=== PATIENT | female | born 1940 | race Caucasian/White ===

== ENCOUNTER 2020-12-01 10:38 | Emergency (ER) | payer MEDICARE, BC | END 2020-12-01 11:45 | disposition left against medical advice (07) | LOC: JP.ED 10:38 | DX: Z53.21 Procedure and treatment not carried out due to patient leaving prior to being seen by health care provider (principal) ==

== ENCOUNTER 2020-12-01 23:21 | Inpatient (IN) | payer MEDICARE, BC ==
[2020-12-01] MEDS ORDERED: Ondansetron 4 MG Tab.DIS PO ONE (23:45)
--- NOTE | 2020-12-01 23:46 | EDM.PDOC ---
ED HPI GENERAL MEDICAL PROBLEM - General Chief Complaint: General Stated Complaint: COVID POSITIVE Time Seen by Provider: 12/01/20 23:40 Source of Information: Reports: Patient History Limitations: Reports: No Limitations - History of Present Illness INITIAL COMMENTS - FREE TEXT/NARRATIVE: Eli is an 80-year-old female returning to the ED after being seen earlier today by Dr. Ferrera where she was diagnosed with COVID-19. She returns tonight because of continued congestion and still not feeling well. He was going to use set up for monoclonal therapy as an outpatient tomorrow morning.. The patient reports she has had symptoms for the last several days and has had a diminished appetite, congestion, and just generally does not feel well. She denies any significant shortness of breath or cough. She has had several episodes of emesis and ongoing nausea but denies any diarrhea or constipation. She states that she has not eaten anything in the last couple of days. She did not get the COVID-19 vaccine because she did not feel concerned that she was going to get it. She has not been masking in the general public. She denies any fever or chills. She has had no loss of taste or smell. She is very vague with her symptoms. Initial vital signs are normal except for an elevated blood pressure at 211/91. Her SPO2 is 97% on room air. She has a past medical h istory significant for hypothyroidism for which she is on thyroxine. She denies any history of diabetes, hypertension, cancer, immunosuppressive therapy use, or coronary artery disease. bodyaches Pain Score (Numeric/FACES): 7 - Related Data Allergies Allergy/AdvReac Type Severity Reaction Status Date / Time No Known Allergies Allergy Verified 12/01/20 23:44 Home Meds: Home Meds Levothyroxine Sodium [Euthyrox] 100 mcg PO DAILY 12/01/20 [History] Omeprazole 20 mg PO DAILY 12/01/20 [History] ED ROS GENERAL - Review of Systems Review Of Systems: See Below Constitutional: Reports: Malaise, Weakness, Fatigue, Decreased Appetite HEENT: Reports: Hearing Loss (The ears being plugged up), Rhinitis (Congestion) Respiratory: Reports: Shortness of Breath (Mild). Denies: Cough, Sputum Cardiovascular: Reports: Blood Pressure Problem (Blood pressure is elevated today) Endocrine: Reports: Fatigue GI/Abdominal: Reports: Nausea, Vomiting Musculoskeletal: Reports: Muscle Pain Skin: Reports: No Symptoms Neurological: Reports: Headache Psychiatric: Reports: No Symptoms Hematologic/Lymphatic: Reports: No Symptoms Immunologic: Reports: No Symptoms ED EXAM, GENERAL - Physical Exam Exam: See Below Exam Limited By: No Limitations General Appearance: Alert, No Apparent Distress, Anxious Eye Exam: Bilateral Eye: EOMI, PERRL Nose: Nasal Swelling, Clear Rhinorrhea Throat/Mouth: Normal Oropharynx, Normal Voice, No Airway Compromise Head: Atraumatic, Normocephalic Neck: Normal Inspection, Supple, Non-Tender, Full Range of Motion. No: Lymphadenopathy (R), Lymphadenopathy (L) Respiratory/Chest: No Respiratory Distress, Lungs Clear, Normal Breath Sounds. No: Rales, Rhonchi, Wheezing Cardiovascular: Normal Peripheral Pulses, Regular Rate, Rhythm, No Murmur Peripheral Pulses: 2+: Radial (L), Radial (R) GI/Abdominal: Soft, Non-Tender, Abnormal Bowel Sounds (Decreased bowel sounds). No: Guarding, Rebound Back Exam: Normal Inspection Extremities: Normal Inspection, Normal Range of Motion, No Pedal Edema Neurological: Alert, Oriented, Normal Cognition, No Motor/Sensory Deficits Psychiatric: Normal Affect, Anxious Skin Exam: Warm, Dry, Intact, Normal Color. No: Cyanosis Course - Vital Signs Last Recorded V/S: Last Vital Signs Temp 36.3 C 12/01/20 23:41 Pulse 75 12/01/20 23:41 Resp 20 12/01/20 23:41 BP 211/89 H 12/01/20 23:41 Pulse Ox 98 12/01/20 23:41 - Orders/Labs/Meds Orders: Active Orders 24 hr Category Date Time Status Chest 1V Frontal [CR] Stat Exams 12/02/20 00:01 Taken C-REACTIVE PROTEIN [CHEM] Stat Lab 12/01/20 23:44 Ordered COMPREHENSIVE METABOLIC PN,CMP [CHEM] Stat Lab 12/01/20 23:44 Ordered D-DIMER QUANTITATIVE [COAG] Stat Lab 12/01/20 23:44 Ordered FERRITIN [CHEM] Stat Lab 12/01/20 23:44 Ordered LACTATE DEHYDROGENASE,LDH [CHEM] Stat Lab 12/01/20 23:44 Ordered Labs: Laboratory Tests 12/01/20 12/01/20 Range/Units 23:55 23:55 WBC 3.9 L (4.5-11.0) K/uL RBC 4.70 (3.30-5.50) M/uL Hgb 14.5 (12.0-15.0) g/dL Hct 40.5 (36.0-48.0) % MCV 86 (80-98) fL MCH 31 (27-31) pg MCHC 36 (32-36) % Plt Count 137 L (150-400) K/uL Neut % (Auto) 44.1 (36-66) % Lymph % (Auto) 43.7 (24-44) % [place] % (Auto) 11.4 H (2-6) % Eos % (Auto) 0.3 L (2-4) % Baso % (Auto) 0.5 (0-1) % Lactic Acid 0.9 (0.4-2.0) mmol/L Meds: Medications Discontinued Medications Generic Name Dose Route Start Last Admin Trade Name Freq PRN Reason Stop Dose Admin Ondansetron HCl 4 mg 12/01/20 23:45 12/01/20 23:55 Ondansetron 4 Mg Tab.Dis PO 12/01/20 23:46 4 mg ONETIME ONE Administration - Radiology Interpretation Free Text/Narrative:: I reviewed the patient's 1 view chest x-ray showing mild bilateral bibasilar scattered fluffy infiltrates likely from the development of Covid pneumonia. - Re-Assessments/Exams Free Text/Narrative Re-Assessment/Exam: 12/02/20 00:36 I reviewed the patient's 1 view chest x-ray showing mild bilateral bibasilar scattered fluffy infiltrates likely from the development of Covid pneumonia. The patient CBC shows a normal leukocyte count of 3.9, hemoglobin of 14.5, hematocrit of 40.5 and a platelet count of 137,000. The venous lactic acid is only 0.9. The D-dimer is mildly elevated at 642 but still within the normal age-adjusted range of less than 800. Her comprehensive metabolic panel shows a sodium of 115, potassium of 4.1, chloride of 82, carbonate of 24, BUN of 10 with a creatinine of 0.6 and glucose of 125. The ferritin is 632, calcium of 8.1 with an albumin of 3.4 and a corrected calcium of 8.2. I discussed the case with Dr. Pelayo and we both felt that perhaps a liter of IV normal saline may correct her sodium. Therefore, we infused a liter of IV normal saline as well as calcium gluconate 1 g for the hypocalcemia. 12/02/20 02:20 A sodium was checked after the infusion and is now 116. The patient had no mental status change despite the hyponatremia which was likely secondary to free water access and the lack of eating over the last several days. However, this is a significantly low sodium in an elderly female and probably warrants admission. 12/02/20 02:37 I discussed the case with Dr. Pelayo again who will come in to admit the patient for further care. Departure - Departure Time of Disposition: 02:45 Disposition: Admitted As Inpatient 64 Clinical Impression: COVID-19, Hyponatremia, Hypocalcemia Nausea and vomiting Qualifiers: Vomiting type: unspecified Vomiting Intractability: non-intractable Qualified Code(s): R11.2 - Nausea with vomiting, unspecified - Discharge Information Instructions: COVID-19 Frequently Asked Questions, COVID-19: How to Protect Yourself and Others - CDC, COVID-19: What to Do if You Are Sick - [facility] (03/21/2020), Hypocalcemia, Adult, Hyponatremia Forms: ED Department Discharge Sepsis Event Note (ED) - Focused Exam Vital Signs: Vital Signs Temp Pulse Resp BP Pulse Ox 12/01/20 23:41 36.3 C 75 20 211/89 H 98 - Problem List & Annotations (1) COVID-19 SNOMED Code(s): 786189000 Code(s): U07.1 - COVID-19 Status: Acute Priority: Medium Current Visit: Yes (2) Nausea and vomiting SNOMED Code(s): 72708244 Code(s): R11.2 - NAUSEA WITH VOMITING, UNSPECIFIED Status: Acute Priority: Medium Current Visit: Yes Qualifiers: Vomiting type: unspecified Vomiting Intractability: non-intractable Qualified Code(s): R11.2 - Nausea with vomiting, unspecified (3) Hypocalcemia SNOMED Code(s): 7622093 Code(s): E83.51 - HYPOCALCEMIA Status: Acute Priority: High Current Visit: Yes (4) Hyponatremia SNOMED Code(s): 62725662 Code(s): E87.1 - HYPO-OSMOLALITY AND HYPONATREMIA Status: Acute Priority: Medium Current Visit: Yes - Problem List Review Problem List Initiated/Reviewed/Updated: Yes - My Orders Last 24 Hours: My Active Orders 12/01/20 23:44 C-REACTIVE PROTEIN [CHEM] Stat COMPREHENSIVE METABOLIC PN,CMP [CHEM] Stat D-DIMER QUANTITATIVE [COAG] Stat FERRITIN [CHEM] Stat LACTATE DEHYDROGENASE,LDH [CHEM] Stat 12/02/20 00:01 Chest 1V Frontal [CR] Stat - Assessment/Plan Last 24 Hours: My Active Orders 12/01/20 23:44 C-REACTIVE PROTEIN [CHEM] Stat COMPREHENSIVE METABOLIC PN,CMP [CHEM] Stat D-DIMER QUANTITATIVE [COAG] Stat FERRITIN [CHEM] Stat LACTATE DEHYDROGENASE,LDH [CHEM] Stat 12/02/20 00:01 Chest 1V Frontal [CR] Stat
[2020-12-02] MEDS ORDERED: Calcium Gluconate 10% 1 GM/10 ML SDV IVPUSH ONE (01:05)
[2020-12-02] MEDS ORDERED: Sodium Chloride 0.9% 10 ML Syringe FLUSH PRN (01:05)
[2020-12-02] MEDS ORDERED: Sodium Chloride 0.9% 1,000 ML IV SCH (01:15)
--- NOTE | 2020-12-02 03:39 | PCM.HP.2 ---
H&P History of Present Illness - General Date of Service: 12/02/20 Admit Problem/Dx: Admission Diagnosis/Problem Admission Diagnosis/Problem Hyponatremia Source of Information: Patient, Provider History Limitations: Reports: No Limitations - History of Present Illness Initial Comments - Free Text/Narative: CC: I felt pretty crappy HPI: Eli presents to the emergency room with diffuse body aches, mild headache and poor intake. She has been ill since , about 4 days ago. She first noticed a mild headache as well as diffuse myalgias. She had mild nausea. Over the next couple of days her symptoms increased with more intense myalgias. She had several episodes of vomiting along with the nausea. She has had some mild diarrhea. No reports of nasal congestion, sore throat. She has not lost her sense of taste or smell. She has had no appetite and has had very little to eat or drink in the last 3 days. She feels weak and fatigues easily. She does not feel particularly short of breath. She has not been coughing. She is not aware of any fevers and has not had any chills. No obvious sick contacts. She was diagnosed earlier in the day by her primary care physician with COVID-19 infection. Because she felt crummy this evening she came in for evaluation. Work-up in the emergency room revealed a sodium of 115 but otherwise her labs were not too exciting. Kidney function is normal. She received 1 L of IV fluids and her sodium level is up to 116. She will be admitted for further management of her low sodium. 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: Musculoskeletal History: Reports: Arthritis Neurological History: Reports: None Psychiatric History: Reports: None Endocrine/Metabolic History: Reports: Hypothyroidism Hematologic History: Reports: None Immunologic History: Reports: None Oncologic (Cancer) History: Reports: None Dermatologic History: Reports: None - Infectious Disease History Infectious Disease History: Reports: Chicken Pox, Measles, Novel Coronavirus - Past Surgical History HEENT Surgical History: Reports: Cataract Surgery, Tonsillectomy Social & Family History - Family History Cardiac: Denies: CAD - Tobacco Use Tobacco Use Status *Q: Never Tobacco User - Alcohol Use Alcohol Use History: No Alcohol Use in Last Twelve Months: No H&P Review of Systems - Review of Systems: Review Of Systems: See Below Free Text/Narrative: A complete 12 point review of systems was obtained. Pertinent positives and negatives are noted in the history of present illness. All other systems were reviewed and were negative except as noted. Exam - Exam Exam: See Below - Vital Signs Vital Signs: Last Vital Signs Temp 36.3 C 12/01/20 23:41 Pulse 79 12/02/20 02:07 Resp 18 12/02/20 02:07 BP 167/69 H 12/02/20 02:07 Pulse Ox 95 12/02/20 02:07 Weight: 62.8 kg - Exam Quality Assessment: No: Supplemental Oxygen General: Alert, Oriented, Cooperative. No: Mild Distress HEENT: Conjunctiva Clear. No: Mucosa Moist & [place] (dry), Scleral Icterus Neck: Supple, Trachea Midline. No: Lymphadenopathy Lungs: Normal Respiratory Effort, Crackles (few both bases) Cardiovascular: Regular Rate, Regular Rhythm GI/Abdominal Exam: Normal Bowel Sounds, Soft, Non-Tender, No Distention Extremities: No Pedal Edema. No: Increased Warmth Peripheral Pulses: 2+: Dorsalis Pedis (L), Dorsalis Pedis (R) Skin: Warm, Dry Neuro Extensive - Mental Status: Alert, Oriented x3, Nl Response to Commands Neuro Extensive - Motor, Sensory, Reflexes: No: Dysarthria, Abnormal Motor, Tremor Psychiatric: Alert, Normal Affect - Patient Data Lab Results Last 24 hrs: Laboratory Results - last 24 hr 12/01/20 12/01/20 12/01/20 Range/Units 23:55 23:55 23:55 WBC 3.9 L (4.5-11.0) K/uL RBC 4.70 (3.30-5.50) M/uL Hgb 14.5 (12.0-15.0) g/dL Hct 40.5 (36.0-48.0) % MCV 86 (80-98) fL MCH 31 (27-31) pg MCHC 36 (32-36) % Plt Count 137 L (150-400) K/uL Neut % (Auto) 44.1 (36-66) % Lymph % (Auto) 43.7 (24-44) % [place] % (Auto) 11.4 H (2-6) % Eos % (Auto) 0.3 L (2-4) % Baso % (Auto) 0.5 (0-1) % D-Dimer, Quantitative 642.40 H (0.0-500.0) ng/mL Sodium 115 L* (140-148) mmol/L Potassium 4.1 (3.6-5.2) mmol/L Chloride 82 L (100-108) mmol/L Carbon Dioxide 24 (21-32) mmol/L Anion Gap 13.1 (5.0-14.0) mmol/L BUN 10 (7-18) mg/dL Creatinine 0.6 (0.6-1.0) mg/dL Est Cr Clr Drug Dosing 57.17 mL/min Estimated GFR (MDRD) > 60 (>60) Glucose 125 H (74-106) mg/dL Lactic Acid (0.4-2.0) mmol/L Calcium 8.1 L (8.5-10.1) mg/dL Ferritin 632 H (8-388) ng/ml Total Bilirubin 0.4 (0.2-1.0) mg/dL AST 29 (15-37) U/L ALT 30 (12-78) U/L Alkaline Phosphatase 86 (46-116) U/L Lactate Dehydrogenase 202 (82-234) U/L C-Reactive Protein 0.51 H (0.0-0.3) mg/dL Total Protein 6.4 (6.4-8.2) g/dL Albumin 3.4 (3.4-5.0) g/dL Globulin 3.0 (2.3-3.5) g/dL Albumin/Globulin Ratio 1.1 L (1.2-2.2) TSH, Ultra Sensitive (0.358-3.740) uIU/mL 12/01/20 12/02/20 12/02/20 Range/Units 23:55 02:10 02:10 WBC (4.5-11.0) K/uL RBC (3.30-5.50) M/uL Hgb (12.0-15.0) g/dL Hct (36.0-48.0) % MCV (80-98) fL MCH (27-31) pg MCHC (32-36) % Plt Count (150-400) K/uL Neut % (Auto) (36-66) % Lymph % (Auto) (24-44) % [place] % (Auto) (2-6) % Eos % (Auto) (2-4) % Baso % (Auto) (0-1) % D-Dimer, Quantitative (0.0-500.0) ng/mL Sodium 116 L* (140-148) mmol/L Potassium (3.6-5.2) mmol/L Chloride (100-108) mmol/L Carbon Dioxide (21-32) mmol/L Anion Gap (5.0-14.0) mmol/L BUN (7-18) mg/dL Creatinine (0.6-1.0) mg/dL Est Cr Clr Drug Dosing mL/min Estimated GFR (MDRD) (>60) Glucose (74-106) mg/dL Lactic Acid 0.9 (0.4-2.0) mmol/L Calcium (8.5-10.1) mg/dL Ferritin (8-388) ng/ml Total Bilirubin (0.2-1.0) mg/dL AST (15-37) U/L ALT (12-78) U/L Alkaline Phosphatase (46-116) U/L Lactate Dehydrogenase (82-234) U/L C-Reactive Protein (0.0-0.3) mg/dL Total Protein (6.4-8.2) g/dL Albumin (3.4-5.0) g/dL Globulin (2.3-3.5) g/dL Albumin/Globulin Ratio (1.2-2.2) TSH, Ultra Sensitive 1.959 (0.358-3.740) uIU/mL Result Diagrams: 12/01/20 23:55 12/02/20 02:10 Sepsis Event Note - Focused Exam Vital Signs: Vital Signs Temp Pulse Resp BP Pulse Ox 12/02/20 02:07 79 18 167/69 H 95 12/02/20 00:48 72 18 153/73 H 95 12/01/20 23:41 36.3 C 75 20 211/89 H 98 *Q Meaningful Use (ADM) - VTE Risk Assess *Q Each Risk Factor Represents 1 Point: Serious lung disease including pneumonia Total Score 1 Point Risk Factors: 1 Each Risk Factor Represents 2 Points: None Total Score 2 Point Risk Factors: 0 Each Risk Factor Represents 3 Points: Age 75 Years or Greater Total Score 3 Point Risk Factors: 3 Each Risk Factor Represents 5 Points: None Total Score 5 Point Risk Factors: 0 Venous Thromboembolism Risk Factor Score *Q: 4 - Problem List (1) COVID-19 SNOMED Code(s): 472063029 ICD Code: U07.1 - COVID-19 Status: Acute Priority: Medium Current Visit: Yes (2) Hyponatremia SNOMED Code(s): 47605711 ICD Code: E87.1 - HYPO-OSMOLALITY AND HYPONATREMIA Status: Acute Priority: Medium Current Visit: Yes Problem List Initiated/Reviewed/Updated: Yes Orders Last 24hrs: Active Orders 24 hr Category Date Time Status Patient Status Manage Transfer [TRANSFER] Routine ADT 12/02/20 03:31 Ordered Chest 1V Frontal [CR] Stat Exams 12/02/20 00:01 Taken Sodium Chloride 0.9% [Normal Saline] 1,000 ml Med 12/02/20 01:15 Active IV ASDIRECTED Sodium Chloride 0.9% [Saline Flush] Med 12/02/20 01:05 Active 10 ml FLUSH ASDIRECTED PRN Saline Lock Insert [OM.PC] Routine Oth 12/02/20 01:05 Ordered Resuscitation Status Routine Resus Stat 12/02/20 03:32 Ordered Medication Orders Sodium Chloride (Normal Saline) 1,000 mls @ 999 mls/hr IV ASDIRECTED GRETEL Last Admin: 12/02/20 01:28 Dose: 999 mls/hr Documented by: PREILOR Sodium Chloride (Sodium Chloride 0.9% 10 Ml Syringe) 10 ml FLUSH ASDIRECTED PRN PRN Reason: Keep Vein Open Last Admin: 12/02/20 01:28 Dose: 10 ml Documented by: PREILOR Assessment/Plan Comment:: ASSESSMENT AND PLAN - Severe hyponatremia-I am a little suspicious this may be chronic with no impressive symptoms even with the sodium that is quite low. Vitals are stable. Kidney function is stable. She is slightly hypovolemic. She does feel better after a liter of fluids. Her PPI has the potential to cause this though this reaction is unusual. I am hopeful that with a high salt diet she can improve her sodium level. If not she may require hypertonic saline. -High salt diet -Recheck sodium in 4 hours -Consider hypertonic saline if not improving in 4 hours -Check serum osmolality -Urine for urinalysis, urine osmolality and urine sodium -Discontinue PPI COVID-19 infection-manifestations include myalgias, nausea, vomiting and fatigue. She is not currently hypoxic. -Isolation precautions -No treatment indicated at this time other than supportive care Hypothyroidism, acquired-TSH normal. -Continue supplement Maintenance issues - -DVT prophylaxis-Lovenox -GI prophylaxis-H2 annabel -Nutrition-regular diet with extra salt -Barcenas catheter-not indicated CODE STATUS -full code Admission justification -this patient will be admitted for observation to initiate therapy for hyponatremia Disposition -I anticipate discharge home after the hospital stay Primary care physician -Dr. Otilio Pelayo M.D. - Mortality Measure Prognosis:: Good
[2020-12-02] MEDS ORDERED: Ondansetron 4 MG/2 ML SDV IV PRN (03:44)
[2020-12-02] MEDS ORDERED: Ondansetron 4 MG Tab.DIS PO PRN (03:44)
--- NOTE | 2020-12-02 03:53 | PCM.HP.2 ---
H&P History of Present Illness - General Date of Service: 12/02/20 Admit Problem/Dx: Admission Diagnosis/Problem Admission Diagnosis/Problem Hyponatremia bodyaches Pain Score (Numeric/FACES): 7 - Related Data Allergies/Adverse Reactions: Allergies Allergy/AdvReac Type Severity Reaction Status Date / Time No Known Allergies Allergy Verified 12/01/20 23:44 Home Medications: Home Meds Levothyroxine Sodium [Euthyrox] 100 mcg PO DAILY 12/01/20 [History] Omeprazole 20 mg PO DAILY 12/01/20 [History] Past Medical History Cardiovascular History: Reports: None Respiratory History: Reports: None Gastrointestinal History: Reports: GERD Genitourinary History: Reports: None [employer] History: Reports: Musculoskeletal History: Reports: Arthritis Neurological History: Reports: None Psychiatric History: Reports: None Endocrine/Metabolic History: Reports: Hypothyroidism Hematologic History: Reports: None Immunologic History: Reports: None Oncologic (Cancer) History: Reports: None Dermatologic History: Reports: None - Infectious Disease History Infectious Disease History: Reports: Chicken Pox, Measles, Novel Coronavirus - Past Surgical History HEENT Surgical History: Reports: Cataract Surgery, Tonsillectomy Social & Family History - Family History Cardiac: Denies: CAD - Tobacco Use Tobacco Use Status *Q: Never Tobacco User Exam - Vital Signs Vital Signs: Last Vital Signs Temp 36.3 C 12/01/20 23:41 Pulse 79 12/02/20 02:07 Resp 18 12/02/20 02:07 BP 167/69 H 12/02/20 02:07 Pulse Ox 95 12/02/20 02:07 Weight: 62.8 kg - Patient Data Lab Results Last 24 hrs: Laboratory Results - last 24 hr 12/01/20 12/01/20 12/01/20 Range/Units 23:55 23:55 23:55 WBC 3.9 L (4.5-11.0) K/uL RBC 4.70 (3.30-5.50) M/uL Hgb 14.5 (12.0-15.0) g/dL Hct 40.5 (36.0-48.0) % MCV 86 (80-98) fL MCH 31 (27-31) pg MCHC 36 (32-36) % Plt Count 137 L (150-400) K/uL Neut % (Auto) 44.1 (36-66) % Lymph % (Auto) 43.7 (24-44) % Randolph % (Auto) 11.4 H (2-6) % Eos % (Auto) 0.3 L (2-4) % Baso % (Auto) 0.5 (0-1) % D-Dimer, Quantitative 642.40 H (0.0-500.0) ng/mL Sodium 115 L* (140-148) mmol/L Potassium 4.1 (3.6-5.2) mmol/L Chloride 82 L (100-108) mmol/L Carbon Dioxide 24 (21-32) mmol/L Anion Gap 13.1 (5.0-14.0) mmol/L BUN 10 (7-18) mg/dL Creatinine 0.6 (0.6-1.0) mg/dL Est Cr Clr Drug Dosing 57.17 mL/min Estimated GFR (MDRD) > 60 (>60) Glucose 125 H (74-106) mg/dL Lactic Acid (0.4-2.0) mmol/L Calcium 8.1 L (8.5-10.1) mg/dL Ferritin 632 H (8-388) ng/ml Total Bilirubin 0.4 (0.2-1.0) mg/dL AST 29 (15-37) U/L ALT 30 (12-78) U/L Alkaline Phosphatase 86 (46-116) U/L Lactate Dehydrogenase 202 (82-234) U/L C-Reactive Protein 0.51 H (0.0-0.3) mg/dL Total Protein 6.4 (6.4-8.2) g/dL Albumin 3.4 (3.4-5.0) g/dL Globulin 3.0 (2.3-3.5) g/dL Albumin/Globulin Ratio 1.1 L (1.2-2.2) TSH, Ultra Sensitive (0.358-3.740) uIU/mL 12/01/20 12/02/20 12/02/20 Range/Units 23:55 02:10 02:10 WBC (4.5-11.0) K/uL RBC (3.30-5.50) M/uL Hgb (12.0-15.0) g/dL Hct (36.0-48.0) % MCV (80-98) fL MCH (27-31) pg MCHC (32-36) % Plt Count (150-400) K/uL Neut % (Auto) (36-66) % Lymph % (Auto) (24-44) % Randolph % (Auto) (2-6) % Eos % (Auto) (2-4) % Baso % (Auto) (0-1) % D-Dimer, Quantitative (0.0-500.0) ng/mL Sodium 116 L* (140-148) mmol/L Potassium (3.6-5.2) mmol/L Chloride (100-108) mmol/L Carbon Dioxide (21-32) mmol/L Anion Gap (5.0-14.0) mmol/L BUN (7-18) mg/dL Creatinine (0.6-1.0) mg/dL Est Cr Clr Drug Dosing mL/min Estimated GFR (MDRD) (>60) Glucose (74-106) mg/dL Lactic Acid 0.9 (0.4-2.0) mmol/L Calcium (8.5-10.1) mg/dL Ferritin (8-388) ng/ml Total Bilirubin (0.2-1.0) mg/dL AST (15-37) U/L ALT (12-78) U/L Alkaline Phosphatase (46-116) U/L Lactate Dehydrogenase (82-234) U/L C-Reactive Protein (0.0-0.3) mg/dL Total Protein (6.4-8.2) g/dL Albumin (3.4-5.0) g/dL Globulin (2.3-3.5) g/dL Albumin/Globulin Ratio (1.2-2.2) TSH, Ultra Sensitive 1.959 (0.358-3.740) uIU/mL Result Diagrams: 12/01/20 23:55 12/02/20 02:10 Sepsis Event Note - Focused Exam Vital Signs: Vital Signs Temp Pulse Resp BP Pulse Ox 12/02/20 02:07 79 18 167/69 H 95 12/02/20 00:48 72 18 153/73 H 95 12/01/20 23:41 36.3 C 75 20 211/89 H 98 - Problem List (1) COVID-19 SNOMED Code(s): 364349216 ICD Code: U07.1 - COVID-19 Status: Acute Priority: Medium Current Visit: Yes (2) Hyponatremia SNOMED Code(s): 31525291 ICD Code: E87.1 - HYPO-OSMOLALITY AND HYPONATREMIA Status: Acute Priority: Medium Current Visit: Yes Orders Last 24hrs: Active Orders 24 hr Category Date Time Status Patient Status [ADT] Routine ADT 12/02/20 03:44 Active Intake and Output [RC] QSHIFT Care 12/02/20 03:44 Active Notify Provider Vital Signs [RC] ASDIRECTED Care 12/02/20 03:44 Active Oxygen Therapy [RC] PRN Care 12/02/20 03:44 Active Up With Assistance [RC] ASDIRECTED Care 12/02/20 03:44 Active VTE/DVT Education [RC] Per Unit Routine Care 12/02/20 03:44 Active Vital Signs [RC] Q4H Care 12/02/20 03:44 Active Regular Diet [DIET] Diet 12/02/20 Breakfast Active Chest 1V Frontal [CR] Stat Exams 12/02/20 00:01 Taken BASIC METABOLIC PANEL,BMP [CHEM] Routine Lab 12/02/20 08:00 Ordered OSMOLALITY Routine Lab 12/02/20 03:44 Ordered OSMOLALITY, URINE Routine Lab 12/02/20 03:44 Ordered SODIUM,URINE RANDOM [URCHEM] Routine Lab 12/02/20 03:44 Ordered UA W/MICROSCOPIC [URIN] Stat Lab 12/02/20 03:44 Ordered Acetaminophen [TylenoL] Med 12/02/20 03:44 Ordered 650 mg PO Q4H PRN Enoxaparin [Lovenox] Med 12/02/20 09:00 Ordered 40 mg SUBCUT DAILY Famotidine [Pepcid] Med 12/02/20 09:00 Ordered 20 mg PO DAILY LORazepam [Ativan] Med 12/02/20 03:44 Ordered 0.5 mg IVPUSH Q4H PRN Levothyroxine [Synthroid] Med 12/02/20 09:00 Ordered 100 mcg PO DAILY Ondansetron [Zofran ODT] Med 12/02/20 03:44 Ordered 4 mg PO Q6H PRN Ondansetron [Zofran] Med 12/02/20 03:44 Ordered 4 mg IV Q6H PRN Sodium Chloride 0.9% [Saline Flush] Med 12/02/20 01:05 Active 10 ml FLUSH ASDIRECTED PRN Saline Lock Insert [OM.PC] Routine Oth 12/02/20 01:05 Ordered Resuscitation Status Routine Resus Stat 12/02/20 03:32 Ordered Medication Orders Acetaminophen (Acetaminophen 325 Mg Tab) 650 mg PO Q4H PRN PRN Reason: Pain (Mild 1-3)/fever Enoxaparin Sodium (Enoxaparin 40 Mg/0.4 Ml Syringe) 40 mg SUBCUT DAILY GRETEL Famotidine (Famotidine 20 Mg Tab) 20 mg PO DAILY GRETEL Levothyroxine Sodium (Levothyroxine 100 Mcg Tab) 100 mcg PO DAILY GRETEL Lorazepam (Lorazepam 2 Mg/Ml Sdv) 0.5 mg IVPUSH Q4H PRN PRN Reason: Nausea/Vomiting Ondansetron HCl (Ondansetron 4 Mg/2 Ml Sdv) 4 mg IV Q6H PRN PRN Reason: Nausea/Vomiting Ondansetron HCl (Ondansetron 4 Mg Tab.Dis) 4 mg PO Q6H PRN PRN Reason: Nausea able to take PO Sodium Chloride (Sodium Chloride 0.9% 10 Ml Syringe) 10 ml FLUSH ASDIRECTED PRN PRN Reason: Keep Vein Open Last Admin: 12/02/20 01:28 Dose: 10 ml Documented by: GLENN
[2020-12-02] MEDS: Acetaminophen 325 MG Tab PO PRN ×3 (06:43→16:27)
[2020-12-02] MEDS ORDERED: Levothyroxine 100 MCG **PTOM PO SCH (07:30)
[2020-12-02] MEDS: Enoxaparin 40 MG/0.4 ML Syringe SUBCUT SCH (08:25)
[2020-12-02] MEDS: LORazepam 2 MG/ML SDV IVPUSH PRN ×2 (08:39→17:43)
--- NOTE | 2020-12-02 09:16 | CR ---
CHEST: Portable 12/02/2020 at 1228 CLINICAL HISTORY:Covid COMPARISON:None FINDINGS: Heart size and pulmonary vascularity are normal. There are atherosclerotic changes in the aorta.. There is some mild increase in lung markings in both lower lobes. This is a predominantly interstitial pattern. Impression: Mild increase in the lower lobe lung markings bilaterally. This may represent a pneumonitis or bronchiolitis
[2020-12-02] MEDS: Sodium Chloride 0.9% 1,000 ML IV SCH ×2 (09:30→19:24)
[2020-12-02] MEDS: Famotidine 20 MG Tab PO SCH (11:48)
--- NOTE | 2020-12-02 15:18 | PCM.PN ---
- General Info Date of Service: 12/02/20 Subjective Update: Ms. Marroquin is an 80-year-old woman who was admitted early this morning with progressive weakness and cough secondary to COVID-19. She is not hypoxic and currently not requiring supplemental oxygen. She was also found to be significantly hyponatremic with a sodium level of 115. Sodium level has not dropped further but has not shown significant improvement thus far. Functional Status: Reports: Tolerating Diet, Urinating - Review of Systems General: Reports: Weakness, Fatigue. Denies: Fever, Chills Pulmonary: Reports: Shortness of Breath, Cough. Denies: Pleuritic Chest Pain, Sputum, Hemoptysis, Wheezing Cardiovascular: Reports: Dyspnea on Exertion. Denies: Chest Pain, Palpitations, Orthopnea, PND, Edema, Lightheadedness Gastrointestinal: Reports: Decreased Appetite, Nausea. Denies: Abdominal Pain, Diarrhea, Difficulty Swallowing, Vomiting Genitourinary: Reports: No Symptoms - Patient Data Vitals - Most Recent: Last Vital Signs Temp 97.6 F 12/02/20 11:00 Pulse 67 12/02/20 11:00 Resp 16 12/02/20 11:00 BP 156/68 H 12/02/20 11:00 Pulse Ox 95 12/02/20 11:00 Weight - Most Recent: 138 lb I&O - Last 24 Hours: Intake & Output 12/02/20 12/02/20 12/02/20 06:59 14:59 22:59 Intake Total 250 Output Total 100 950 Balance -100 -700 Lab Results Last 24 Hours: Laboratory Results - last 24 hr 12/01/20 12/01/20 12/01/20 Range/Units 23:55 23:55 23:55 WBC 3.9 L (4.5-11.0) K/uL RBC 4.70 (3.30-5.50) M/uL Hgb 14.5 (12.0-15.0) g/dL Hct 40.5 (36.0-48.0) % MCV 86 (80-98) fL MCH 31 (27-31) pg MCHC 36 (32-36) % Plt Count 137 L (150-400) K/uL Neut % (Auto) 44.1 (36-66) % Lymph % (Auto) 43.7 (24-44) % [place] % (Auto) 11.4 H (2-6) % Eos % (Auto) 0.3 L (2-4) % Baso % (Auto) 0.5 (0-1) % D-Dimer, Quantitative 642.40 H (0.0-500.0) ng/mL Sodium 115 L* (140-148) mmol/L Potassium 4.1 (3.6-5.2) mmol/L Chloride 82 L (100-108) mmol/L Carbon Dioxide 24 (21-32) mmol/L Anion Gap 13.1 (5.0-14.0) mmol/L BUN 10 (7-18) mg/dL Creatinine 0.6 (0.6-1.0) mg/dL Est Cr Clr Drug Dosing 57.17 mL/min Estimated GFR (MDRD) > 60 (>60) Glucose 125 H (74-106) mg/dL Lactic Acid (0.4-2.0) mmol/L Calcium 8.1 L (8.5-10.1) mg/dL Ferritin 632 H (8-388) ng/ml Total Bilirubin 0.4 (0.2-1.0) mg/dL AST 29 (15-37) U/L ALT 30 (12-78) U/L Alkaline Phosphatase 86 (46-116) U/L Lactate Dehydrogenase 202 (82-234) U/L C-Reactive Protein 0.51 H (0.0-0.3) mg/dL Total Protein 6.4 (6.4-8.2) g/dL Albumin 3.4 (3.4-5.0) g/dL Globulin 3.0 (2.3-3.5) g/dL Albumin/Globulin Ratio 1.1 L (1.2-2.2) TSH, Ultra Sensitive (0.358-3.740) uIU/mL Urine Color (YELLOW) Urine Appearance (CLEAR) Urine pH (5.0-8.0) Ur Specific [place] (1.008-1.030) Urine Protein (NEGATIVE) mg/dL Urine Glucose (UA) (NEGATIVE) mg/dL Urine Ketones (NEGATIVE) mg/dL Urine Occult Blood (NEGATIVE) Urine Nitrite (NEGATIVE) Urine Bilirubin (NEGATIVE) Urine Urobilinogen (0.2-1.0) EU/dL Ur Leukocyte Esterase (NEGATIVE) Urine RBC (0-5) Urine WBC (0-5) Ur Epithelial Cells Amorphous Sediment Urine Bacteria Urine Mucus Ur Random Sodium (20-110) mmol/L 12/01/20 12/02/20 12/02/20 Range/Units 23:55 02:10 02:10 WBC (4.5-11.0) K/uL RBC (3.30-5.50) M/uL Hgb (12.0-15.0) g/dL Hct (36.0-48.0) % MCV (80-98) fL MCH (27-31) pg MCHC (32-36) % Plt Count (150-400) K/uL Neut % (Auto) (36-66) % Lymph % (Auto) (24-44) % [place] % (Auto) (2-6) % Eos % (Auto) (2-4) % Baso % (Auto) (0-1) % D-Dimer, Quantitative (0.0-500.0) ng/mL Sodium 116 L* (140-148) mmol/L Potassium (3.6-5.2) mmol/L Chloride (100-108) mmol/L Carbon Dioxide (21-32) mmol/L Anion Gap (5.0-14.0) mmol/L BUN (7-18) mg/dL Creatinine (0.6-1.0) mg/dL Est Cr Clr Drug Dosing mL/min Estimated GFR (MDRD) (>60) Glucose (74-106) mg/dL Lactic Acid 0.9 (0.4-2.0) mmol/L Calcium (8.5-10.1) mg/dL Ferritin (8-388) ng/ml Total Bilirubin (0.2-1.0) mg/dL AST (15-37) U/L ALT (12-78) U/L Alkaline Phosphatase (46-116) U/L Lactate Dehydrogenase (82-234) U/L C-Reactive Protein (0.0-0.3) mg/dL Total Protein (6.4-8.2) g/dL Albumin (3.4-5.0) g/dL Globulin (2.3-3.5) g/dL Albumin/Globulin Ratio (1.2-2.2) TSH, Ultra Sensitive 1.959 (0.358-3.740) uIU/mL Urine Color (YELLOW) Urine Appearance (CLEAR) Urine pH (5.0-8.0) Ur Specific [place] (1.008-1.030) Urine Protein (NEGATIVE) mg/dL Urine Glucose (UA) (NEGATIVE) mg/dL Urine Ketones (NEGATIVE) mg/dL Urine Occult Blood (NEGATIVE) Urine Nitrite (NEGATIVE) Urine Bilirubin (NEGATIVE) Urine Urobilinogen (0.2-1.0) EU/dL Ur Leukocyte Esterase (NEGATIVE) Urine RBC (0-5) Urine WBC (0-5) Ur Epithelial Cells Amorphous Sediment Urine Bacteria Urine Mucus Ur Random Sodium (20-110) mmol/L 12/02/20 12/02/20 12/02/20 Range/Units 04:15 04:15 08:00 WBC (4.5-11.0) K/uL RBC (3.30-5.50) M/uL Hgb (12.0-15.0) g/dL Hct (36.0-48.0) % MCV (80-98) fL MCH (27-31) pg MCHC (32-36) % Plt Count (150-400) K/uL Neut % (Auto) (36-66) % Lymph % (Auto) (24-44) % [place] % (Auto) (2-6) % Eos % (Auto) (2-4) % Baso % (Auto) (0-1) % D-Dimer, Quantitative (0.0-500.0) ng/mL Sodium 116 L* (140-148) mmol/L Potassium 4.0 (3.6-5.2) mmol/L Chloride 83 L (100-108) mmol/L Carbon Dioxide 23 (21-32) mmol/L Anion Gap 14.0 (5.0-14.0) mmol/L BUN 8 (7-18) mg/dL Creatinine 0.6 (0.6-1.0) mg/dL Est Cr Clr Drug Dosing 57.17 mL/min Estimated GFR (MDRD) > 60 (>60) Glucose 106 (74-106) mg/dL Lactic Acid (0.4-2.0) mmol/L Calcium 7.8 L (8.5-10.1) mg/dL Ferritin (8-388) ng/ml Total Bilirubin (0.2-1.0) mg/dL AST (15-37) U/L ALT (12-78) U/L Alkaline Phosphatase (46-116) U/L Lactate Dehydrogenase (82-234) U/L C-Reactive Protein (0.0-0.3) mg/dL Total Protein (6.4-8.2) g/dL Albumin (3.4-5.0) g/dL Globulin (2.3-3.5) g/dL Albumin/Globulin Ratio (1.2-2.2) TSH, Ultra Sensitive (0.358-3.740) uIU/mL Urine Color Yellow (YELLOW) Urine Appearance Clear (CLEAR) Urine pH 7.0 (5.0-8.0) Ur Specific [place] 1.020 (1.008-1.030) Urine Protein Negative (NEGATIVE) mg/dL Urine Glucose (UA) Negative (NEGATIVE) mg/dL Urine Ketones 15 H (NEGATIVE) mg/dL Urine Occult Blood Negative (NEGATIVE) Urine Nitrite Negative (NEGATIVE) Urine Bilirubin Negative (NEGATIVE) Urine Urobilinogen 0.2 (0.2-1.0) EU/dL Ur Leukocyte Esterase Trace H (NEGATIVE) Urine RBC 0-5 (0-5) Urine WBC 0-5 (0-5) Ur Epithelial Cells Rare Amorphous Sediment Not seen Urine Bacteria Few Urine Mucus Not seen Ur Random Sodium 152 H (20-110) mmol/L 12/02/20 Range/Units 12:31 WBC (4.5-11.0) K/uL RBC (3.30-5.50) M/uL Hgb (12.0-15.0) g/dL Hct (36.0-48.0) % MCV (80-98) fL MCH (27-31) pg MCHC (32-36) % Plt Count (150-400) K/uL Neut % (Auto) (36-66) % Lymph % (Auto) (24-44) % [place] % (Auto) (2-6) % Eos % (Auto) (2-4) % Baso % (Auto) (0-1) % D-Dimer, Quantitative (0.0-500.0) ng/mL Sodium 116 L* (140-148) mmol/L Potassium (3.6-5.2) mmol/L Chloride (100-108) mmol/L Carbon Dioxide (21-32) mmol/L Anion Gap (5.0-14.0) mmol/L BUN (7-18) mg/dL Creatinine (0.6-1.0) mg/dL Est Cr Clr Drug Dosing mL/min Estimated GFR (MDRD) (>60) Glucose (74-106) mg/dL Lactic Acid (0.4-2.0) mmol/L Calcium (8.5-10.1) mg/dL Ferritin (8-388) ng/ml Total Bilirubin (0.2-1.0) mg/dL AST (15-37) U/L ALT (12-78) U/L Alkaline Phosphatase (46-116) U/L Lactate Dehydrogenase (82-234) U/L C-Reactive Protein (0.0-0.3) mg/dL Total Protein (6.4-8.2) g/dL Albumin (3.4-5.0) g/dL Globulin (2.3-3.5) g/dL Albumin/Globulin Ratio (1.2-2.2) TSH, Ultra Sensitive (0.358-3.740) uIU/mL Urine Color (YELLOW) Urine Appearance (CLEAR) Urine pH (5.0-8.0) Ur Specific [place] (1.008-1.030) Urine Protein (NEGATIVE) mg/dL Urine Glucose (UA) (NEGATIVE) mg/dL Urine Ketones (NEGATIVE) mg/dL Urine Occult Blood (NEGATIVE) Urine Nitrite (NEGATIVE) Urine Bilirubin (NEGATIVE) Urine Urobilinogen (0.2-1.0) EU/dL Ur Leukocyte Esterase (NEGATIVE) Urine RBC (0-5) Urine WBC (0-5) Ur Epithelial Cells Amorphous Sediment Urine Bacteria Urine Mucus Ur Random Sodium (20-110) mmol/L Med Orders - Current: Current Medications Acetaminophen (Acetaminophen 325 Mg Tab) 650 mg PO Q4H PRN PRN Reason: Pain (Mild 1-3)/fever Last Admin: 12/02/20 12:27 Dose: 650 mg Documented by: Enoxaparin Sodium (Enoxaparin 40 Mg/0.4 Ml Syringe) 40 mg SUBCUT DAILY [facility] Last Admin: 12/02/20 08:25 Dose: 40 mg Documented by: Famotidine (Famotidine 20 Mg Tab) 20 mg PO DAILY [facility] Last Admin: 12/02/20 11:48 Dose: 20 mg Documented by: Sodium Chloride (Normal Saline) 1,000 mls @ 100 mls/hr IV ASDIRECTED [facility] Last Admin: 12/02/20 09:30 Dose: 100 mls/hr Documented by: Levothyroxine Sodium (Levothyroxine 100 Mcg Ptom) 100 mcg PO DAILY@0730 [facility] Last Admin: 12/02/20 11:48 Dose: 100 mcg Documented by: Lorazepam (Lorazepam 2 Mg/Ml Sdv) 0.5 mg IVPUSH Q4H PRN PRN Reason: Nausea/Vomiting Last Admin: 12/02/20 08:39 Dose: 0.5 mg Documented by: Ondansetron HCl (Ondansetron 4 Mg/2 Ml Sdv) 4 mg IV Q6H PRN PRN Reason: Nausea/Vomiting Last Admin: 12/02/20 04:17 Dose: 4 mg Documented by: Ondansetron HCl (Ondansetron 4 Mg Tab.Dis) 4 mg PO Q6H PRN PRN Reason: Nausea able to take PO Sodium Chloride (Sodium Chloride 0.9% 10 Ml Syringe) 10 ml FLUSH ASDIRECTED PRN PRN Reason: Keep Vein Open Last Admin: 12/02/20 01:28 Dose: 10 ml Documented by: Discontinued Medications Calcium Gluconate (Calcium Gluconate 10% 1 Gm/10 Ml Sdv) 1 gm IVPUSH ONETIME ONE Stop: 12/02/20 01:06 Last Admin: 12/02/20 01:28 Dose: 1 gm Documented by: Sodium Chloride (Normal Saline) 1,000 mls @ 999 mls/hr IV ASDIRECTED [facility] Last Admin: 12/02/20 01:28 Dose: 999 mls/hr Documented by: Ondansetron HCl (Ondansetron 4 Mg Tab.Dis) 4 mg PO ONETIME ONE Stop: 12/01/20 23:46 Last Admin: 12/01/20 23:55 Dose: 4 mg Documented by: - Exam Quality Assessment: DVT Prophylaxis General: Alert, Oriented, Cooperative, Mild Distress Lungs: Clear to Auscultation, Normal Respiratory Effort, Decreased Breath Sounds. No: Crackles, Rales, Rhonchi, Wheezing Cardiovascular: Regular Rate, Regular Rhythm, No Murmurs GI/Abdominal Exam: Soft, Non-Tender, No Organomegaly, No Distention Extremities: Non-Tender, No Pedal Edema - Patient Data Lab Results Last 24 hrs: Laboratory Results - last 24 hr 12/01/20 12/01/20 12/01/20 Range/Units 23:55 23:55 23:55 WBC 3.9 L (4.5-11.0) K/uL RBC 4.70 (3.30-5.50) M/uL Hgb 14.5 (12.0-15.0) g/dL Hct 40.5 (36.0-48.0) % MCV 86 (80-98) fL MCH 31 (27-31) pg MCHC 36 (32-36) % Plt Count 137 L (150-400) K/uL Neut % (Auto) 44.1 (36-66) % Lymph % (Auto) 43.7 (24-44) % [place] % (Auto) 11.4 H (2-6) % Eos % (Auto) 0.3 L (2-4) % Baso % (Auto) 0.5 (0-1) % D-Dimer, Quantitative 642.40 H (0.0-500.0) ng/mL Sodium 115 L* (140-148) mmol/L Potassium 4.1 (3.6-5.2) mmol/L Chloride 82 L (100-108) mmol/L Carbon Dioxide 24 (21-32) mmol/L Anion Gap 13.1 (5.0-14.0) mmol/L BUN 10 (7-18) mg/dL Creatinine 0.6 (0.6-1.0) mg/dL Est Cr Clr Drug Dosing 57.17 mL/min Estimated GFR (MDRD) > 60 (>60) Glucose 125 H (74-106) mg/dL Lactic Acid (0.4-2.0) mmol/L Calcium 8.1 L (8.5-10.1) mg/dL Ferritin 632 H (8-388) ng/ml Total Bilirubin 0.4 (0.2-1.0) mg/dL AST 29 (15-37) U/L ALT 30 (12-78) U/L Alkaline Phosphatase 86 (46-116) U/L Lactate Dehydrogenase 202 (82-234) U/L C-Reactive Protein 0.51 H (0.0-0.3) mg/dL Total Protein 6.4 (6.4-8.2) g/dL Albumin 3.4 (3.4-5.0) g/dL Globulin 3.0 (2.3-3.5) g/dL Albumin/Globulin Ratio 1.1 L (1.2-2.2) TSH, Ultra Sensitive (0.358-3.740) uIU/mL Urine Color (YELLOW) Urine Appearance (CLEAR) Urine pH (5.0-8.0) Ur Specific [place] (1.008-1.030) Urine Protein (NEGATIVE) mg/dL Urine Glucose (UA) (NEGATIVE) mg/dL Urine Ketones (NEGATIVE) mg/dL Urine Occult Blood (NEGATIVE) Urine Nitrite (NEGATIVE) Urine Bilirubin (NEGATIVE) Urine Urobilinogen (0.2-1.0) EU/dL Ur Leukocyte Esterase (NEGATIVE) Urine RBC (0-5) Urine WBC (0-5) Ur Epithelial Cells Amorphous Sediment Urine Bacteria Urine Mucus Ur Random Sodium (20-110) mmol/L 12/01/20 12/02/20 12/02/20 Range/Units 23:55 02:10 02:10 WBC (4.5-11.0) K/uL RBC (3.30-5.50) M/uL Hgb (12.0-15.0) g/dL Hct (36.0-48.0) % MCV (80-98) fL MCH (27-31) pg MCHC (32-36) % Plt Count (150-400) K/uL Neut % (Auto) (36-66) % Lymph % (Auto) (24-44) % [place] % (Auto) (2-6) % Eos % (Auto) (2-4) % Baso % (Auto) (0-1) % D-Dimer, Quantitative (0.0-500.0) ng/mL Sodium 116 L* (140-148) mmol/L Potassium (3.6-5.2) mmol/L Chloride (100-108) mmol/L Carbon Dioxide (21-32) mmol/L Anion Gap (5.0-14.0) mmol/L BUN (7-18) mg/dL Creatinine (0.6-1.0) mg/dL Est Cr Clr Drug Dosing mL/min Estimated GFR (MDRD) (>60) Glucose (74-106) mg/dL Lactic Acid 0.9 (0.4-2.0) mmol/L Calcium (8.5-10.1) mg/dL Ferritin (8-388) ng/ml Total Bilirubin (0.2-1.0) mg/dL AST (15-37) U/L ALT (12-78) U/L Alkaline Phosphatase (46-116) U/L Lactate Dehydrogenase (82-234) U/L C-Reactive Protein (0.0-0.3) mg/dL Total Protein (6.4-8.2) g/dL Albumin (3.4-5.0) g/dL Globulin (2.3-3.5) g/dL Albumin/Globulin Ratio (1.2-2.2) TSH, Ultra Sensitive 1.959 (0.358-3.740) uIU/mL Urine Color (YELLOW) Urine Appearance (CLEAR) Urine pH (5.0-8.0) Ur Specific [place] (1.008-1.030) Urine Protein (NEGATIVE) mg/dL Urine Glucose (UA) (NEGATIVE) mg/dL Urine Ketones (NEGATIVE) mg/dL Urine Occult Blood (NEGATIVE) Urine Nitrite (NEGATIVE) Urine Bilirubin (NEGATIVE) Urine Urobilinogen (0.2-1.0) EU/dL Ur Leukocyte Esterase (NEGATIVE) Urine RBC (0-5) Urine WBC (0-5) Ur Epithelial Cells Amorphous Sediment Urine Bacteria Urine Mucus Ur Random Sodium (20-110) mmol/L 12/02/20 12/02/20 12/02/20 Range/Units 04:15 04:15 08:00 WBC (4.5-11.0) K/uL RBC (3.30-5.50) M/uL Hgb (12.0-15.0) g/dL Hct (36.0-48.0) % MCV (80-98) fL MCH (27-31) pg MCHC (32-36) % Plt Count (150-400) K/uL Neut % (Auto) (36-66) % Lymph % (Auto) (24-44) % [place] % (Auto) (2-6) % Eos % (Auto) (2-4) % Baso % (Auto) (0-1) % D-Dimer, Quantitative (0.0-500.0) ng/mL Sodium 116 L* (140-148) mmol/L Potassium 4.0 (3.6-5.2) mmol/L Chloride 83 L (100-108) mmol/L Carbon Dioxide 23 (21-32) mmol/L Anion Gap 14.0 (5.0-14.0) mmol/L BUN 8 (7-18) mg/dL Creatinine 0.6 (0.6-1.0) mg/dL Est Cr Clr Drug Dosing 57.17 mL/min Estimated GFR (MDRD) > 60 (>60) Glucose 106 (74-106) mg/dL Lactic Acid (0.4-2.0) mmol/L Calcium 7.8 L (8.5-10.1) mg/dL Ferritin (8-388) ng/ml Total Bilirubin (0.2-1.0) mg/dL AST (15-37) U/L ALT (12-78) U/L Alkaline Phosphatase (46-116) U/L Lactate Dehydrogenase (82-234) U/L C-Reactive Protein (0.0-0.3) mg/dL Total Protein (6.4-8.2) g/dL Albumin (3.4-5.0) g/dL Globulin (2.3-3.5) g/dL Albumin/Globulin Ratio (1.2-2.2) TSH, Ultra Sensitive (0.358-3.740) uIU/mL Urine Color Yellow (YELLOW) Urine Appearance Clear (CLEAR) Urine pH 7.0 (5.0-8.0) Ur Specific [place] 1.020 (1.008-1.030) Urine Protein Negative (NEGATIVE) mg/dL Urine Glucose (UA) Negative (NEGATIVE) mg/dL Urine Ketones 15 H (NEGATIVE) mg/dL Urine Occult Blood Negative (NEGATIVE) Urine Nitrite Negative (NEGATIVE) Urine Bilirubin Negative (NEGATIVE) Urine Urobilinogen 0.2 (0.2-1.0) EU/dL Ur Leukocyte Esterase Trace H (NEGATIVE) Urine RBC 0-5 (0-5) Urine WBC 0-5 (0-5) Ur Epithelial Cells Rare Amorphous Sediment Not seen Urine Bacteria Few Urine Mucus Not seen Ur Random Sodium 152 H (20-110) mmol/L 12/02/20 Range/Units 12:31 WBC (4.5-11.0) K/uL RBC (3.30-5.50) M/uL Hgb (12.0-15.0) g/dL Hct (36.0-48.0) % MCV (80-98) fL MCH (27-31) pg MCHC (32-36) % Plt Count (150-400) K/uL Neut % (Auto) (36-66) % Lymph % (Auto) (24-44) % [place] % (Auto) (2-6) % Eos % (Auto) (2-4) % Baso % (Auto) (0-1) % D-Dimer, Quantitative (0.0-500.0) ng/mL Sodium 116 L* (140-148) mmol/L Potassium (3.6-5.2) mmol/L Chloride (100-108) mmol/L Carbon Dioxide (21-32) mmol/L Anion Gap (5.0-14.0) mmol/L BUN (7-18) mg/dL Creatinine (0.6-1.0) mg/dL Est Cr Clr Drug Dosing mL/min Estimated GFR (MDRD) (>60) Glucose (74-106) mg/dL Lactic Acid (0.4-2.0) mmol/L Calcium (8.5-10.1) mg/dL Ferritin (8-388) ng/ml Total Bilirubin (0.2-1.0) mg/dL AST (15-37) U/L ALT (12-78) U/L Alkaline Phosphatase (46-116) U/L Lactate Dehydrogenase (82-234) U/L C-Reactive Protein (0.0-0.3) mg/dL Total Protein (6.4-8.2) g/dL Albumin (3.4-5.0) g/dL Globulin (2.3-3.5) g/dL Albumin/Globulin Ratio (1.2-2.2) TSH, Ultra Sensitive (0.358-3.740) uIU/mL Urine Color (YELLOW) Urine Appearance (CLEAR) Urine pH (5.0-8.0) Ur Specific [place] (1.008-1.030) Urine Protein (NEGATIVE) mg/dL Urine Glucose (UA) (NEGATIVE) mg/dL Urine Ketones (NEGATIVE) mg/dL Urine Occult Blood (NEGATIVE) Urine Nitrite (NEGATIVE) Urine Bilirubin (NEGATIVE) Urine Urobilinogen (0.2-1.0) EU/dL Ur Leukocyte Esterase (NEGATIVE) Urine RBC (0-5) Urine WBC (0-5) Ur Epithelial Cells Amorphous Sediment Urine Bacteria Urine Mucus Ur Random Sodium (20-110) mmol/L Result Diagrams: 12/01/20 23:55 12/02/20 12:31 Sepsis Event Note - Evaluation Sepsis Screening Result: No Definite Risk - Focused Exam Vital Signs: Vital Signs Temp Temp Pulse Pulse Resp BP BP 12/02/20 11:00 97.6 F 67 16 156/68 H 12/02/20 07:44 96.8 F L 71 16 183/73 H 12/02/20 03:44 96.6 F L 71 20 176/64 H 12/02/20 03:43 96.6 F L 71 20 176/64 H Pulse Ox 12/02/20 11:00 95 12/02/20 07:44 98 12/02/20 03:44 98 12/02/20 03:43 98 - Problem List Review Problem List Initiated/Reviewed/Updated: Yes - My Orders Last 24 Hours: My Active Orders 12/02/20 09:00 Sodium Chloride 0.9% [Normal Saline] 1,000 ml IV ASDIRECTED 12/02/20 15:30 SODIUM,NA [CHEM] Stat 12/02/20 18:00 SODIUM,NA [CHEM] Q2 12/02/20 20:00 SODIUM,NA [CHEM] Q2 12/02/20 22:00 SODIUM,NA [CHEM] Q2 12/03/20 00:00 SODIUM,NA [CHEM] Q2H 12/03/20 02:00 SODIUM,NA [CHEM] Q2 12/03/20 04:00 SODIUM,NA [CHEM] Q2H 12/03/20 05:00 BASIC METABOLIC PANEL,BMP [CHEM] Timed 12/03/20 06:00 SODIUM,NA [CHEM] Q2H 12/03/20 08:00 SODIUM,NA [CHEM] Q2H - Plan Plan:: ASSESSMENT AND PLAN - Severe hyponatremia-sodium level remains low at 116 -Recheck sodium every 2 hours -Normal saline 100 cc/h -Check serum osmolality -Urine for urinalysis, urine osmolality and urine sodium -Discontinue PPI COVID-19 infection-manifestations include myalgias, nausea, vomiting and fatigue. She is not currently hypoxic. -Isolation precautions -No treatment indicated at this time other than supportive care Hypothyroidism, acquired-TSH normal. -Continue supplement Maintenance issues - -DVT prophylaxis-Lovenox -GI prophylaxis-H2 annabel -Nutrition-regular diet -Barcenas catheter-not indicated CODE STATUS -full code Admission justification -this patient will be admitted for observation to initiate therapy for hyponatremia Disposition -I anticipate discharge home after the hospital stay Primary care physician -Dr. Otilio Ferrera
[2020-12-02] MEDS: Mometasone Furoate Nasal Spray 17 GM Canister NAS SCH (18:14)
[2020-12-03] MEDS: Levothyroxine 100 MCG Tab PO SCH (07:24)
[2020-12-03] MEDS: Mometasone Furoate Nasal Spray 17 GM Canister NAS SCH (08:16)
[2020-12-03] MEDS: Famotidine 20 MG Tab PO SCH (08:16)
[2020-12-03] MEDS: Enoxaparin 40 MG/0.4 ML Syringe SUBCUT SCH (08:17)
[2020-12-03] MEDS: Sodium Chloride 0.9% 1,000 ML IV SCH (09:27)
--- NOTE | 2020-12-03 14:30 | PCM.PN ---
- General Info Date of Service: 12/03/20 Subjective Update: Ms. Marroquin has improved over the last 24 hours. Appetite is better as well as her overall strength. Sodium level this afternoon is up to 123. Functional Status: Reports: Tolerating Diet, Urinating - Review of Systems General: Reports: Weakness, Fatigue. Denies: Fever, Chills Pulmonary: Reports: No Symptoms Cardiovascular: Reports: No Symptoms Gastrointestinal: Reports: No Symptoms Genitourinary: Reports: No Symptoms - Patient Data Vitals - Most Recent: Last Vital Signs Temp 96.8 F L 12/03/20 12:00 Pulse 69 12/03/20 13:58 Resp 14 12/03/20 13:58 BP 152/60 H 12/03/20 13:58 Pulse Ox 97 12/03/20 13:58 Weight - Most Recent: 138 lb I&O - Last 24 Hours: Intake & Output 12/02/20 12/03/20 12/03/20 22:59 06:59 14:59 Intake Total 978 800 500 Output Total 1000 1200 900 Balance -22 -400 -400 Lab Results Last 24 Hours: Laboratory Results - last 24 hr 12/02/20 12/02/20 12/02/20 Range/Units 15:32 18:13 20:19 Sodium 118 L* 116 L* 118 L* (140-148) mmol/L Potassium (3.6-5.2) mmol/L Chloride (100-108) mmol/L Carbon Dioxide (21-32) mmol/L Anion Gap (5.0-14.0) mmol/L BUN (7-18) mg/dL Creatinine (0.6-1.0) mg/dL Est Cr Clr Drug Dosing mL/min Estimated GFR (MDRD) (>60) Glucose (74-106) mg/dL Calcium (8.5-10.1) mg/dL 12/02/20 12/03/20 12/03/20 Range/Units 22:03 00:10 02:05 Sodium 120 L 122 L 122 L (140-148) mmol/L Potassium (3.6-5.2) mmol/L Chloride (100-108) mmol/L Carbon Dioxide (21-32) mmol/L Anion Gap (5.0-14.0) mmol/L BUN (7-18) mg/dL Creatinine (0.6-1.0) mg/dL Est Cr Clr Drug Dosing mL/min Estimated GFR (MDRD) (>60) Glucose (74-106) mg/dL Calcium (8.5-10.1) mg/dL 12/03/20 12/03/20 12/03/20 Range/Units 04:05 06:05 08:00 Sodium 125 L 122 L 122 L (140-148) mmol/L Potassium 3.8 (3.6-5.2) mmol/L Chloride 92 L (100-108) mmol/L Carbon Dioxide 26 (21-32) mmol/L Anion Gap 10.8 (5.0-14.0) mmol/L BUN 8 (7-18) mg/dL Creatinine 0.7 (0.6-1.0) mg/dL Est Cr Clr Drug Dosing 49.01 mL/min Estimated GFR (MDRD) > 60 (>60) Glucose 85 (74-106) mg/dL Calcium 7.8 L (8.5-10.1) mg/dL 12/03/20 Range/Units 12:10 Sodium 123 L (140-148) mmol/L Potassium (3.6-5.2) mmol/L Chloride (100-108) mmol/L Carbon Dioxide (21-32) mmol/L Anion Gap (5.0-14.0) mmol/L BUN (7-18) mg/dL Creatinine (0.6-1.0) mg/dL Est Cr Clr Drug Dosing mL/min Estimated GFR (MDRD) (>60) Glucose (74-106) mg/dL Calcium (8.5-10.1) mg/dL Med Orders - Current: Current Medications Acetaminophen (Acetaminophen 325 Mg Tab) 650 mg PO Q4H PRN PRN Reason: Pain (Mild 1-3)/fever Last Admin: 12/02/20 16:27 Dose: 650 mg Documented by: Enoxaparin Sodium (Enoxaparin 40 Mg/0.4 Ml Syringe) 40 mg SUBCUT DAILY [facility] Last Admin: 12/03/20 08:17 Dose: 40 mg Documented by: Famotidine (Famotidine 20 Mg Tab) 20 mg PO DAILY [facility] Last Admin: 12/03/20 08:16 Dose: 20 mg Documented by: Sodium Chloride (Normal Saline) 1,000 mls @ 50 mls/hr IV ASDIRECTED [facility] Last Admin: 12/03/20 09:27 Dose: 50 mls/hr Documented by: Levothyroxine Sodium (Levothyroxine 100 Mcg Tab) 100 mcg PO DAILY@0730 [facility] Last Admin: 12/03/20 07:24 Dose: 100 mcg Documented by: Lorazepam (Lorazepam 2 Mg/Ml Sdv) 0.5 mg IVPUSH Q4H PRN PRN Reason: Nausea/Vomiting Last Admin: 12/02/20 17:43 Dose: 0.5 mg Documented by: Mometasone Furoate (Mometasone Furoate Nasal [place] 17 Gm Canister) 0 gm YESI DAILY [facility] Last Admin: 12/03/20 08:16 Dose: 1 spray Documented by: Ondansetron HCl (Ondansetron 4 Mg/2 Ml Sdv) 4 mg IV Q6H PRN PRN Reason: Nausea/Vomiting Last Admin: 12/02/20 04:17 Dose: 4 mg Documented by: Ondansetron HCl (Ondansetron 4 Mg Tab.Dis) 4 mg PO Q6H PRN PRN Reason: Nausea able to take PO Last Admin: 12/02/20 16:27 Dose: 4 mg Documented by: Sodium Chloride (Sodium Chloride 0.9% 10 Ml Syringe) 10 ml FLUSH ASDIRECTED PRN PRN Reason: Keep Vein Open Last Admin: 12/02/20 01:28 Dose: 10 ml Documented by: Discontinued Medications Calcium Gluconate (Calcium Gluconate 10% 1 Gm/10 Ml Sdv) 1 gm IVPUSH ONETIME ONE Stop: 12/02/20 01:06 Last Admin: 12/02/20 01:28 Dose: 1 gm Documented by: Sodium Chloride (Normal Saline) 1,000 mls @ 999 mls/hr IV ASDIRECTED [facility] Last Admin: 12/02/20 01:28 Dose: 999 mls/hr Documented by: Sodium Chloride (Normal Saline) 1,000 mls @ 100 mls/hr IV ASDIRECTED [facility] Last Admin: 12/02/20 19:24 Dose: 100 mls/hr Documented by: Levothyroxine Sodium (Levothyroxine 100 Mcg Ptom) 100 mcg PO DAILY@0730 [facility] Last Admin: 12/02/20 11:48 Dose: 100 mcg Documented by: Ondansetron HCl (Ondansetron 4 Mg Tab.Dis) 4 mg PO ONETIME ONE Stop: 12/01/20 23:46 Last Admin: 12/01/20 23:55 Dose: 4 mg Documented by: - Exam Quality Assessment: DVT Prophylaxis General: Alert, Oriented, Cooperative, Mild Distress Lungs: Clear to Auscultation, Normal Respiratory Effort Cardiovascular: Regular Rate, Regular Rhythm, No Murmurs GI/Abdominal Exam: Soft, Non-Tender, No Organomegaly, No Distention Extremities: Non-Tender, No Pedal Edema - Patient Data Lab Results Last 24 hrs: Laboratory Results - last 24 hr 12/02/20 12/02/20 12/02/20 Range/Units 15:32 18:13 20:19 Sodium 118 L* 116 L* 118 L* (140-148) mmol/L Potassium (3.6-5.2) mmol/L Chloride (100-108) mmol/L Carbon Dioxide (21-32) mmol/L Anion Gap (5.0-14.0) mmol/L BUN (7-18) mg/dL Creatinine (0.6-1.0) mg/dL Est Cr Clr Drug Dosing mL/min Estimated GFR (MDRD) (>60) Glucose (74-106) mg/dL Calcium (8.5-10.1) mg/dL 12/02/20 12/03/20 12/03/20 Range/Units 22:03 00:10 02:05 Sodium 120 L 122 L 122 L (140-148) mmol/L Potassium (3.6-5.2) mmol/L Chloride (100-108) mmol/L Carbon Dioxide (21-32) mmol/L Anion Gap (5.0-14.0) mmol/L BUN (7-18) mg/dL Creatinine (0.6-1.0) mg/dL Est Cr Clr Drug Dosing mL/min Estimated GFR (MDRD) (>60) Glucose (74-106) mg/dL Calcium (8.5-10.1) mg/dL 12/03/20 12/03/20 12/03/20 Range/Units 04:05 06:05 08:00 Sodium 125 L 122 L 122 L (140-148) mmol/L Potassium 3.8 (3.6-5.2) mmol/L Chloride 92 L (100-108) mmol/L Carbon Dioxide 26 (21-32) mmol/L Anion Gap 10.8 (5.0-14.0) mmol/L BUN 8 (7-18) mg/dL Creatinine 0.7 (0.6-1.0) mg/dL Est Cr Clr Drug Dosing 49.01 mL/min Estimated GFR (MDRD) > 60 (>60) Glucose 85 (74-106) mg/dL Calcium 7.8 L (8.5-10.1) mg/dL 12/03/20 Range/Units 12:10 Sodium 123 L (140-148) mmol/L Potassium (3.6-5.2) mmol/L Chloride (100-108) mmol/L Carbon Dioxide (21-32) mmol/L Anion Gap (5.0-14.0) mmol/L BUN (7-18) mg/dL Creatinine (0.6-1.0) mg/dL Est Cr Clr Drug Dosing mL/min Estimated GFR (MDRD) (>60) Glucose (74-106) mg/dL Calcium (8.5-10.1) mg/dL Result Diagrams: 12/01/20 23:55 12/03/20 12:10 Sepsis Event Note - Evaluation Sepsis Screening Result: No Definite Risk - Focused Exam Vital Signs: Vital Signs Temp Pulse Resp BP Pulse Ox 12/03/20 13:58 69 14 152/60 H 97 12/03/20 12:00 96.8 F L 64 12 178/73 H 96 12/03/20 10:00 66 13 167/63 H 95 12/03/20 08:00 95.9 F L 74 15 164/71 H 97 12/03/20 05:47 57 L 13 97 12/03/20 04:00 60 11 L 143/57 H 97 - Problem List Review Problem List Initiated/Reviewed/Updated: Yes - My Orders Last 24 Hours: My Active Orders 12/02/20 17:45 Mometasone Furoate [Nasonex [place]] See Dose Instructions YESI DAILY 12/03/20 08:45 Sodium Chloride 0.9% [Normal Saline] 1,000 ml IV ASDIRECTED 12/03/20 13:12 Patient Status [ADT] Routine 12/03/20 16:00 SODIUM,NA [CHEM] Stat 12/04/20 05:00 BASIC METABOLIC PANEL,BMP [CHEM] Timed - Plan Plan:: ASSESSMENT AND PLAN - Severe hyponatremia-sodium level has improved to 123 this afternoon -Recheck sodium later today and in a.m. -Normal saline 50 cc/h -Serum and urine osmolality pending -Discontinue PPI COVID-19 infection-manifestations include myalgias, nausea, vomiting and fatigue. She is not currently hypoxic. She does feel improved today with better appetite and overall energy level -Isolation precautions -No treatment indicated at this time other than supportive care Hypothyroidism, acquired-TSH normal. -Continue supplement Maintenance issues - -DVT prophylaxis-Lovenox -GI prophylaxis-H2 annabel -Nutrition-regular diet -Barcenas catheter-not indicated CODE STATUS -full code Admission justification -this patient will be admitted for observation to initiate therapy for hyponatremia Disposition -I anticipate discharge home after the hospital stay Primary care physician -Dr. Otilio Ferrera
[2020-12-03] MEDS: Acetaminophen 325 MG Tab PO PRN (19:40)
[2020-12-04] MEDS: Sodium Chloride 0.9% 1,000 ML IV SCH (06:00)
[2020-12-04] MEDS: Levothyroxine 100 MCG Tab PO SCH (07:51)
[2020-12-04] MEDS: Enoxaparin 40 MG/0.4 ML Syringe SUBCUT SCH (08:02)
[2020-12-04] MEDS: Mometasone Furoate Nasal Spray 17 GM Canister NAS SCH (08:02)
[2020-12-04] MEDS: Famotidine 20 MG Tab PO SCH (08:07)
[2020-12-04] MEDS ORDERED: Potassium Chloride 20 MEQ Tab.ER PO ONE (09:00)
[2020-12-04] MEDS ORDERED: CASIRIVIMAB/IMDEVIMAB 10 ML in Sodium Chloride 0.9% 150 ML IV ONE (11:00)
[2020-12-04] MEDS ORDERED: Famotidine 20 MG/2 ML SDV IV PRN (11:00)
[2020-12-04] MEDS ORDERED: methylPREDNISolone Sodium Succinate 125 MG/2 ML SDV IVPUSH PRN (11:00)
[2020-12-04] MEDS ORDERED: EPINEPHrine 1 MG/ML SDV IM PRN (11:00)
[2020-12-04] MEDS ORDERED: diphenhydrAMINE 50 MG/ML SDV IVPUSH PRN (11:00)
[2020-12-04] MEDS ORDERED: Acetaminophen 325 MG Tab PO PRN (11:00)
--- NOTE | 2020-12-04 11:07 | PCM.DCSUM1 ---
Discharge Summary - Hospital Course Brief History: Ms. Marroquin is an 80-year-old woman who was admitted through the emergency department with progressive weakness, nausea, vomiting, secondary to COVID-19 infection and severe hyponatremia. - Discharge Data Discharge Date: 12/04/20 Discharge Disposition: Home, Self-Care 01 Condition: Fair - Referral to Home Health Primary Care Physician: Otilio Ferrera Sr, MD - Discharge Diagnosis/Problem(s) (1) COVID-19 SNOMED Code(s): 736391514 ICD Code: U07.1 - COVID-19 Status: Acute Priority: Medium Current Visit: Yes (2) Nausea and vomiting SNOMED Code(s): 50153568 ICD Code: R11.2 - NAUSEA WITH VOMITING, UNSPECIFIED Status: Acute Priority: Medium Current Visit: Yes Qualifiers: Vomiting type: unspecified Vomiting Intractability: non-intractable Qualified Code(s): R11.2 - Nausea with vomiting, unspecified (3) Hyponatremia SNOMED Code(s): 56373817 ICD Code: E87.1 - HYPO-OSMOLALITY AND HYPONATREMIA Status: Acute Priority: High Current Visit: Yes - Patient Summary/Data Hospital Course: Ms. Marroquin presented to the emergency room with diffuse body aches, mild headache and poor intake. She has been ill since , about 4 days ago. She first noticed a mild headache as well as diffuse myalgias. She had mild nausea. Over the next couple of days her symptoms increased with more intense myalgias. She had several episodes of vomiting along with the nausea. She has had some mild diarrhea. She feels weak and fatigues easily. She does not feel particularly short of breath. She was diagnosed earlier in the day by her primary care physician with COVID-19 infection. Work-up in the emergency room revealed a sodium of 115 but otherwise her labs were not too exciting. Kidney function is normal. She received 1 L of IV fluids and her sodium level is up to 116. She was admitted for further management of her low sodium. By the following morning sodium level was still very low at 116. Because she was not having active respiratory symptoms related to her COVID-19 infection she was started on IV normal saline at 100 cc/h. Over the next 24 hours sodium level did come up to 123. IV rate was decreased to 50 cc/h and by the following morning sodium level was 130. Low sodium was felt to be secondary to her acute illness with COVID- 19. She had no respiratory compromise noted during her hospital stay and did not require any supplemental oxygen. She will be treated with monoclonal antibody for Covid infection prior to discharge. Activity will be as tolerated and she will resume her usual diet. Follow-up appointment will be scheduled with her primary care provider within 1 week. She is instructed to continue to self quarantine for an additional 8 days and to get a Covid vaccination in 3 months. - Patient Instructions Diet: Usual Diet as Tolerated Activity: As Tolerated Other/Special Instructions: Schedule follow-up appointment with primary care provider within 1 week. Remain on self quarantine for an additional 8 days. Plan for Covid vaccination in 3 months - Discharge Plan *PRESCRIPTION DRUG MONITORING PROGRAM REVIEWED*: Not Applicable *COPY OF PRESCRIPTION DRUG MONITORING REPORT IN PATIENT MARÍA ELENA: Not Applicable Home Medications: Home Meds Levothyroxine Sodium [Euthyrox] 100 mcg PO DAILY 12/01/20 [History] Omeprazole 20 mg PO DAILY 12/01/20 [History] Patient Handouts: COVID-19 Frequently Asked Questions, Hyponatremia, COVID-19: How to Protect Yourself and Others - CDC, COVID-19: What to Do if You Are Sick - [facility] (03/21/2020) Referrals: Ren Rangel NP [Nurse Practitioner] - 12/12/20 1:00 pm (Pleasee arrive 15 minutes early to register for your appointment.) - Discharge Summary/Plan Comment DC Time >30 min.: No Total # of Minutes for Discharge Time: 15 Discharge Summary/Plan Comment: 15 - Patient Data Vitals - Most Recent: Last Vital Signs Temp 97.0 F 12/04/20 09:55 Pulse 71 12/04/20 09:55 Resp 18 12/04/20 09:55 BP 139/65 12/04/20 09:55 Pulse Ox 99 12/04/20 09:55 Weight - Most Recent: 138 lb I&O - Last 24 hours: Intake & Output 12/03/20 12/04/20 12/04/20 22:59 06:59 14:59 Intake Total 250 673 400 Balance 250 673 400 Lab Results - Last 24 hrs: Laboratory Results - last 24 hr 12/03/20 12/03/20 12/04/20 Range/Units 12:10 16:21 05:26 Sodium 123 L 124 L 130 L (140-148) mmol/L Potassium 3.4 L (3.6-5.2) mmol/L Chloride 94 L (100-108) mmol/L Carbon Dioxide 26 (21-32) mmol/L Anion Gap 13.4 (5.0-14.0) mmol/L BUN 12 (7-18) mg/dL Creatinine 0.6 (0.6-1.0) mg/dL Est Cr Clr Drug Dosing 57.17 mL/min Estimated GFR (MDRD) > 60 (>60) Glucose 100 (74-106) mg/dL Calcium 8.3 L (8.5-10.1) mg/dL Med Orders - Current: Current Medications Acetaminophen (Acetaminophen 325 Mg Tab) 650 mg PO Q4H PRN PRN Reason: Pain (Mild 1-3)/fever Last Admin: 12/03/20 19:40 Dose: 650 mg Documented by: Acetaminophen (Acetaminophen 325 Mg Tab) 650 mg PO ONETIME PRN PRN Reason: HEADACHE,CHILLS Diphenhydramine HCl (Diphenhydramine 50 Mg/Ml Sdv) 50 mg IVPUSH ONETIME PRN PRN Reason: ALLERGIC RXN Enoxaparin Sodium (Enoxaparin 40 Mg/0.4 Ml Syringe) 40 mg SUBCUT DAILY [facility] Last Admin: 12/04/20 08:02 Dose: 40 mg Documented by: Epinephrine HCl (Epinephrine 1 Mg/Ml Sdv) 0.3 mg IM ONETIME PRN PRN Reason: ALLERGIC RXN Famotidine (Famotidine 20 Mg Tab) 20 mg PO DAILY [facility] Last Admin: 12/04/20 08:07 Dose: 20 mg Documented by: Famotidine (Famotidine 20 Mg/2 Ml Sdv) 20 mg IV ONETIME PRN PRN Reason: ALLERGIC RXN CASIRIVIMAB/IMDEVIMAB 10 ml/ (Sodium Chloride) 160 mls @ 310 mls/hr IV ONETIME ONE Stop: 12/04/20 11:30 Levothyroxine Sodium (Levothyroxine 100 Mcg Tab) 100 mcg PO DAILY@0730 [facility] Last Admin: 12/04/20 07:51 Dose: 100 mcg Documented by: Lorazepam (Lorazepam 2 Mg/Ml Sdv) 0.5 mg IVPUSH Q4H PRN PRN Reason: Nausea/Vomiting Last Admin: 12/02/20 17:43 Dose: 0.5 mg Documented by: Methylprednisolone Sodium Succinate (Methylprednisolone Sodium Succinate 125 Mg/2 Ml Sdv) 125 mg IVPUSH ONETIME PRN PRN Reason: ALLERGIC RXN Mometasone Furoate (Mometasone Furoate Nasal [place] 17 Gm Canister) 0 gm YESI DAILY [facility] Last Admin: 12/04/20 08:02 Dose: 2 spray Documented by: Ondansetron HCl (Ondansetron 4 Mg/2 Ml Sdv) 4 mg IV Q6H PRN PRN Reason: Nausea/Vomiting Last Admin: 12/02/20 04:17 Dose: 4 mg Documented by: Ondansetron HCl (Ondansetron 4 Mg Tab.Dis) 4 mg PO Q6H PRN PRN Reason: Nausea able to take PO Last Admin: 12/02/20 16:27 Dose: 4 mg Documented by: Sodium Chloride (Sodium Chloride 0.9% 10 Ml Syringe) 10 ml FLUSH ASDIRECTED PRN PRN Reason: Keep Vein Open Last Admin: 12/02/20 01:28 Dose: 10 ml Documented by: Discontinued Medications Calcium Gluconate (Calcium Gluconate 10% 1 Gm/10 Ml Sdv) 1 gm IVPUSH ONETIME ONE Stop: 12/02/20 01:06 Last Admin: 12/02/20 01:28 Dose: 1 gm Documented by: Sodium Chloride (Normal Saline) 1,000 mls @ 999 mls/hr IV ASDIRECTED [facility] Last Admin: 12/02/20 01:28 Dose: 999 mls/hr Documented by: Sodium Chloride (Normal Saline) 1,000 mls @ 100 mls/hr IV ASDIRECTED [facility] Last Admin: 12/02/20 19:24 Dose: 100 mls/hr Documented by: Sodium Chloride (Normal Saline) 1,000 mls @ 50 mls/hr IV ASDIRECTED [facility] Last Admin: 12/04/20 06:00 Dose: 50 mls/hr Documented by: Levothyroxine Sodium (Levothyroxine 100 Mcg Ptom) 100 mcg PO DAILY@0730 [facility] Last Admin: 12/02/20 11:48 Dose: 100 mcg Documented by: Ondansetron HCl (Ondansetron 4 Mg Tab.Dis) 4 mg PO ONETIME ONE Stop: 12/01/20 23:46 Last Admin: 12/01/20 23:55 Dose: 4 mg Documented by: Potassium Chloride (Potassium Chloride 20 Meq Tab.Er) 40 meq PO ONETIME ONE Stop: 12/04/20 09:01 - Exam General: Reports: Alert, Oriented, Cooperative, Mild Distress Lungs: Reports: Clear to Auscultation, Normal Respiratory Effort, Decreased Breath Sounds. Denies: Rales, Rhonchi, Wheezing Cardiovascular: Reports: Regular Rate, Regular Rhythm, No Murmurs GI/Abdominal Exam: Soft, Non-Tender, No Organomegaly, No Distention Extremities: Non-Tender, No Pedal Edema
== END 2020-12-04 13:45 | disposition home or self-care (01) | DRG 640 ==
LOC: JP.ED 23:21 → JP.ICU 12-02 03:31 → OBSVTOIN 12-02 16:27 → JP.2SS 12-03 15:30
PROVIDERS: ADMIT Internal Medicine; ATTEND Hospitalist
PROC: 3E0330M Introduction of Antineoplastic, Monoclonal Antibody, into Peripheral Vein, Percutaneous Approach (ICD-10-PCS; principal; 2020-12-01)
DX: E87.1 Hypo-osmolality and hyponatremia (principal); U07.1 COVID-19; E83.51 Hypocalcemia; Z79.890 Hormone replacement therapy; Z79.899 Other long term (current) drug therapy; K21.9 Gastro-esophageal reflux disease without esophagitis; E03.9 Hypothyroidism, unspecified; Z98.49 Cataract extraction status, unspecified eye; Z90.89 Acquired absence of other organs; Z86.16 Personal history of COVID-19
CPT/HCPCS: 36415 ×2; 71045 ×2; 80048; 80053; 81001; 82728; 83605; 83615; 83930; 83935; 84295 ×3; 84300; 84443; 85025; 85379; 86140; 96374; 99285; A9270 ×5; J0610; J1650; J2060; J2405; J7030 ×2; Q0243

== ENCOUNTER 2025-03-08 12:07 | Emergency (ER) | payer MEDICARE, BC ==
[2025-03-08 12:54] LABS: BASOPHILS ABSOLUTE AUTO 0.04 K/uL (0.00-0.10); BASOPHILS PERCENT AUTO 0.4 % (0.1-1.3); EOSINOPHILS ABSOLUTE AUTO 0.22 K/uL (0.00-0.40); EOSINOPHILS PERCENT AUTO 2.4 % (0.0-5.4); IMMATURE GRAN ABSOLUTE AUTO 0.06 K/uL (0.00-0.23); IMMATURE GRAN PERCENT AUTO 0.6 % (0.0-0.7); LYMPHOCYTES ABSOLUTE AUTO 3.69 K/uL (0.8-3.3); LYMPHOCYTES PERCENT AUTO 39.8 % (11.4-47.7); MONOCYTES ABSOLUTE AUTO 0.48 K/uL (0.20-0.90); MONOCYTES PERCENT AUTO 5.2 % (3.3-12.6); NEUTROPHILS ABSOLUTE AUTO 4.79 K/uL (1.0-7.6); NEUTROPHILS PERCENT AUTO 51.6 % (40.0-78.1); PLATELET COUNT,PLT 130 K/uL (130-375); RED BLOOD CELL COUNT 4.57 M/uL (3.77-5.24); WHITE BLOOD CELL COUNT,WBC 9.3 K/uL (3.2-11.0)
[2025-03-08] MEDS: Ondansetron 4 MG/2 ML SDV ONE (12:55)
[2025-03-08 13:15] LABS: CHLORIDE,CL 103 mmol/L (100-108); EST CRCL DRUG DOSING (CG) 35.49 mL/min; ESTIMATED GFR 62 mL/min (>60)
[2025-03-08 13:40] LABS: A/G RATIO 1.2 (1.2-2.2); ALANINE AMINOTRANSFERASE,ALT 24 U/L (12-78); ASPARTATE AMNIOTRANSFERASE,AST 20 U/L (15-37); BILIRUBIN TOTAL 0.5 mg/dL (0.2-1.0); BLOOD UREA NITROGEN,BUN 20 mg/dL (7-18); CARBON DIOXIDE,CO2 27 mmol/L (21-32); CREATININE 0.9 mg/dL (0.6-1.0); GLUCOSE RANDOM 111 mg/dL (74-106); POTASSIUM,K 4.0 mmol/L (3.6-5.2); PROTEIN TOTAL,TP 6.8 g/dL (6.4-8.2); SODIUM,NA 139 mmol/L (140-148)
== END 2025-03-08 21:18 | disposition home or self-care (01) ==
LOC: JP.ED 12:07
DX: S06.6X0A Traumatic subarachnoid hemorrhage without loss of consciousness, initial encounter (principal); K21.9 Gastro-esophageal reflux disease without esophagitis; E03.9 Hypothyroidism, unspecified; Z88.2 Allergy status to sulfonamides; Z79.890 Hormone replacement therapy; Z79.899 Other long term (current) drug therapy; W00.0XXA Fall on same level due to ice and snow, initial encounter
CPT/HCPCS: 36415; 70450; 72125; 76377; 80053; 85025; 96374; 96376; 99283; 99284; J2405; J3290